=== PATIENT | female | born 1965 | race Caucasian/White ===

== ENCOUNTER 2020-01-31 11:45 | Emergency (ER) | payer MEDICAID, MEDICARE, OTHER ==
[~2020-01-31] VITALS: Ht 167.6 cm; Wt 74.8 kg
[~2020-01-31 11:45] MED LIST: ADDERAL20 MG ORAL; ALBUTEROL SULF8.5 GM INH; NORCO 5-325 TA1 EACH ORAL; NORCO1 E1 ORAL; XANAX2 MG ORAL
[2020-01-31 12:04] VITALS: BP 118/73
[2020-01-31] MEDS ORDERED: Depakote 500mg tab ORAL ONE (12:15)
[2020-01-31] MEDS ORDERED: DEPAKOTE500 MG PO (12:21)
[2020-01-31] MEDS ORDERED: ABILIFY10 MG ORAL (12:21)
[2020-01-31 12:26] VITALS: BP 120/74
--- NOTE | 2020-01-31 12:34 | Emergency Room Report ---
History of Present Illness General Chief Complaint: Medication Refill Source: Patient Present Illness HPI Patient reports that she has been off of her bipolar medication for the past 2 months She did not like the way that she felt And presents to the emergency room Reports that she has had this problem in the past which she has been off her medications for a while However directly denies any homicidal suicidal thoughts denies any chest pain she reports that she was doing well on Depakote and Abilify Denies any focal weakness denies any fevers or chills Allergies: Coded Allergies: PENICILLINS (Verified Allergy, Severe, anaphylactic reaction, 06/01/14) SULFA (SULFONAMIDE ANTIBIOTICS) (Verified Allergy, Unknown, 01/31/20) COVID-19 Screening Contact w/high risk pt: No Recent Travel to affected area: No Experienced COVID-19 symptoms?: No COVID-19 Testing performed 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 Patient History Past Medical History: see triage record Last Menstrual Period: hysterectomy Reviewed Nursing Documentation: PMH: Agreed; PSxH: Agreed Nursing Documentation-PMH Hx Cardiac Problems: No Hx Asthma: Yes Hx Cancer: No Hx Gastrointestinal Problems: No Hx Neurological Problems: No - lupus Review of Systems All Other Systems: negative except mentioned in HPI Physical Exam Vital Signs Date Time Temp Pulse Resp B/P (MAP) Pulse Ox O2 Delivery O2 Flow Rate FiO2 01/31/20 11:57 98.8 72 20 118/73 (88) 98 Room Air Sp02 EP Interpretation: reviewed, normal General Appearance: well appearing, no apparent distress Head: normocephalic, atraumatic Eyes: bilateral eye PERRL, bilateral eye EOMI ENT: hearing grossly normal, normal pharynx, TMs + canals normal, uvula midline Neck: full range of motion, supple, no meningismus, no bony tend Respiratory: lungs clear, normal breath sounds, no rhonchi, no respiratory distress, no retraction, no accessory muscle use Cardiovascular #1: normal peripheral pulses, regular rate, rhythm, no edema, no gallop, no JVD, no murmur Gastrointestinal: normal bowel sounds, non tender, soft, no mass, no organomegaly, non-distended, no guarding, no hernia, no pulsatile mass, no rebound Genitourinary: no CVA tenderness Musculoskeletal: normal inspection Neurologic: motor strength/tone normal, 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-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 nml as tested, oriented x3 , sensory intact, responsive Psychiatric: mood/affect normal Skin: no rash Lymphatic: normal inspection, no adenopathy Medical Decision Making Diagnostic Impression: Primary Impression: bipolar disorder ER Course Given the patient's history and presentation she was provided with a Depakote pill here she was thankful for that Denies any homicidal or suicidal thoughts reports that she Has been on those meds for a long time and does well with the medications she also reports that she is attempting outpatient follow-up Given the patient's general evaluation Her appropriate behavior she does not meet any further Psychiatric hold criteria and will have close outpatient follow-up Last Vital Signs Date Time Temp Pulse Resp B/P (MAP) Pulse Ox O2 Delivery O2 Flow Rate FiO2 01/31/20 12:26 98.8 86 20 120/74 98 Room Air Status: improved Disposition: HOME, SELF-CARE Condition: Improved Scripts Aripiprazole* (ABILIFY*) 10 Mg Tablet 10 MG ORAL DAILY, #30 TAB Prov: Brando Combs DO 01/31/20 Divalproex Sodium (Depakote) 500 Mg Tablet. 500 MG PO BID, #60 TAB Prov: Brando Combs DO 01/31/20 Referrals: NON PHYSICIAN (PCP) [facility] Ambre Knapp. [facility] ER - Peds ER - Patient Instructions: Bipolar Disorder Additional Instructions: Patient is provided with the discharge instructions notified to follow up with primary doctor in the next 2-3 days otherwise return to the er with any worsening symptoms. Please note that this report is being documented using SVXR technology. This can lead to erroneous entry secondary to incorrect interpretation by the dictating instrument. Brando Combs DO January 31, 2020 12:34
== END 2020-01-31 12:26 | disposition home or self-care (01) ==
LOC: EMR 11:55
DX: R31.9 Hematuria, unspecified (principal); Z88.0 Allergy status to penicillin; Z88.2 Allergy status to sulfonamides
CPT/HCPCS: 99282